=== PATIENT | male | born 1995 | race Asian ===

== ENCOUNTER → 2020-05-30 | Day surgery (SDC) | payer BC ==
[~2020-05-30] VITALS: Ht 172.7 cm; Wt 61.2 kg
[~2020-05-30] MED LIST: BACLOFEN10 MG ORAL; DICYCLOMINE HCL10 MG ORAL; OMEPRAZOLE40 M1 ORAL
[2020-05-30 11:03] VITALS: BP 121/79
--- NOTE | 2020-05-30 11:24 | Pre-Procedure Note/Attestation ---
Pre-Procedure Note/Attestation Complete Prior to Procedure Planned Procedure: not applicable Procedure Narrative: egd Indications for Procedure Pre-Operative Diagnosis: gerd Attestation I attest that I discussed the nature of the procedure; its benefits; risks and complications; and alternatives (and the risks and benefits of such alternatives), prior to the procedure, with the patient (or the patient's legal veterans employment representative). I attest that, if there was a reasonable possibility of needing a blood transfusion, the patient (or the patient's legal veterans employment representative) was given the [facility] standardized written summary, pursuant to the [place] Blood Safety Act ([place] Health and Safety Code # 1645, as amended). I attest that I re-evaluated the patient just prior to the surgery and that there has been no change in the patient's H&P, except as documented below: Raul Marion MD May 30, 2020 11:24
--- NOTE | 2020-05-30 11:25 | Short Stay Surgery H&P ---
History of Present Illness History of Present Illness Chief Complaint gerd HPI Abi Davis is a 24 year old male who was admitted on for Ivs, Abdominal Pain Patient History Allergies: Coded Allergies: No Known Allergies (Unverified , 05/27/20) PAST MEDICAL HISTORY: (1) Abdominal pain Medication History Scheduled Baclofen* (Baclofen*), 20 MG ORAL BEDTIME, (Reported) Dicyclomine Hcl* (Dicyclomine Hcl*), 10 MG ORAL DAILY, (Reported) Omeprazole (Omeprazole), 40 MG ORAL DAILY, (Reported) Review of Systems Cardiovascular: Reports: no symptoms Respiratory: Reports: no symptoms Skeletal: Reports: no symptoms Gastrointestinal: Reports: gastro esophageal reflux disease Genitourinary: Reports: no symptoms Neurologic: Reports: no symptoms Endocrine: Reports: no symptoms Hematologic: Reports: no symptoms Physical Exam Vital Signs Last Vital Signs Date Time Temp Pulse Resp B/P (MAP) Pulse Ox O2 Delivery O2 Flow Rate FiO2 05/30/20 11:04 Room Air 05/30/20 11:03 98.1 70 18 121/79 97 Skin: normal HENT: normal Heart: normal Lungs: normal Abdomen: normal Extremities: normal Plan Plan of Care egd Attestation Are the patient's medical conditions optimized for surgery? Attestation Response: yes Raul Marion MD May 30, 2020 11:25
--- NOTE | 2020-05-30 11:27 | Anethesia Preoperative Eval ---
Anesthesia Pre-op PMH/ROS General Date of Evaluation: May 30, 2020 Time of Evaluation: 11:26 Anesthesiologist: Cralos ASA Score: ASA 2 Mallampati Score Class I : Soft palate, uvula, fauces, pillars visible Class II: Soft palate, uvula, fauces visible Class III: Soft palate, base of uvula visible Class IV: Only hard plate visible Mallampati Classification: Class II Surgeon: Doni Diagnosis: Abdominal pain Surgical Procedure: EGD Anesthesia History: none Family History: no anesthesia problems Allergies: Coded Allergies: No Known Allergies (Unverified , 05/27/20) Medications: see eMAR Patient NPO?: Yes Past Medical History Cardiovascular: Denies: HTN, CAD, [place], valve dz, arrhythmia, other Pulmonary: Denies: asthma, COPD, HARLEY, other Gastrointestinal/Genitourinary: Reports: GERD; Denies: CRI, ESRD, other Neurologic/Psychiatric: Denies: dementia, CVA, depression/anxiety, TIA, other Endocrine: Denies: DM, hypothyroidism, steroids, other HEENT: Denies: cataract (L), cataract (R), glaucoma, ELIM IRA (L), ELIM IRA (R), other Hematology/Immune: Denies: anemia, DVT, bleeding disorder, other Musculoskeletal/Integumentary: Denies: OA, RA, DJD, DDD, edema, other PMH Narrative: as above PSxH Narrative: none Anesthesia Pre-op Phys. Exam Physician Exam Last Vital Signs Date Time Temp Pulse Resp B/P (MAP) Pulse Ox O2 Delivery O2 Flow Rate FiO2 05/30/20 11:04 Room Air 05/30/20 11:03 98.1 70 18 121/79 97 Constitutional: NAD Neurologic: CN 2-12 intact Cardiovascular: RRR, no M/R/G Respiratory: CTA Gastrointestinal: S/NT/ND Airway Exam Mallampati Score: Class II MO: full Neck: flexible ROM: full Teeth: intact Dentures: no upper, no lower Anesthesia Pre-op A/P Risk Assessment & Plan Assessment: ASA 2 Plan: MAC Status Change Before Surgery: No Dre Gonzalez MD May 30, 2020 11:27
[2020-05-30 11:54] VITALS: BP 112/51
--- NOTE | 2020-05-30 11:56 | Immediate Post-Op Evaluation ---
Immediate Post-Op Evalulation Immediate Post-Op Evalulation Procedure: Egd with Bx Date of Evaluation: May 30, 2020 Time of Evaluation: 11:54 IV Fluids: 400 Blood Products: none Estimated Blood Loss: none Urinary Output: none Blood Pressure Systolic: 108 Blood Pressure Diastolic: 58 Pulse Rate: 62 Respiratory Rate: 18 O2 Sat by Pulse Oximetry: 99 Temperature (Fahrenheit): 97.6 Pain Score (1-10): 1 Nausea: No Vomiting: No Complications none Patient Status: awake, patent, none Hydration Status: adequate Dre Gonzalez MD May 30, 2020 11:55
[2020-05-30 12:00] VITALS: BP 105/70
--- NOTE | 2020-05-30 12:05 | Endoscopy Procedure Note ---
Endoscopy Procedure Note General Indication for Procedure: gerd Procedures Performed: EGD Operative Findings/Diagnosis: gastritis Specimen: yes Pt Tolerated Procedure Well: Yes Estimated Blood Loss: none Anesthesia Anesthesiologist: devin Anesthesia: MAC Inserted Devices Implant(s) used?: No GI Core Measures 50 yrs or older w/o bx or poly: Not Applicable 10yrs. F/U recommended: Not Applicable Raul Marion MD May 30, 2020 12:05
[2020-05-30 12:10] VITALS: BP_SYST 100; BP_SYST 102; BP_DIAS 59; BP_DIAS 67
--- NOTE | 2020-05-30 12:13 | 48 Hour Post Anesthesia Eval ---
Post Anesthesia Evaluation Procedure: Egd with Bx Date of Evaluation: May 30, 2020 Time of Evaluation: 12:12 Blood Pressure Systolic: 108 0: 62 Pulse Rate: 70 Respiratory Rate: 18 Temperature (Fahrenheit): 98.0 O2 Sat by Pulse Oximetry: 99 Airway: patent Nausea: No Vomiting: No Pain Intensity: 1 Hydration Status: adequate Cardiopulmonary Status: stable Mental Status/LOC: patient returned to baseline Follow-up Care/Observations: n/a Post-Anesthesia Complications: none Follow-up care needed: ready to discharge Dre Gonzalez MD May 30, 2020 12:13
[2020-05-30 12:30] VITALS: BP 103/73
--- NOTE | 2020-06-01 23:59 | Procedure Note ---
DATE OF PROCEDURE: 05/30/2020 SURGEON: Raul Marion MD PROCEDURE: Upper endoscopy with biopsy. ANESTHESIA: Per
--- NOTE | 2020-06-05 12:59 | Procedure Note ---
DATE OF PROCEDURE: 05/30/2020 SURGEON: Raul Marion MD PROCEDURE: Upper endoscopy with biopsy. ANESTHESIA: Per
== END | disposition home or self-care (01) ==
LOC: GAS 10:29
DX: K21.9 Gastro-esophageal reflux disease without esophagitis (principal); R10.9 Unspecified abdominal pain; K29.50 Unspecified chronic gastritis without bleeding; Z79.899 Other long term (current) drug therapy
CPT/HCPCS: 43239; 94003; U0004; 94150